=== PATIENT | female | born 1970 | race Caucasian/White ===

== ENCOUNTER → 2018-12-10 | Outpatient (CLI) | payer OTHER ==
[2015-04-01 18:52] VITALS: BP 186/98
[~2018-12-10] MED LIST: GADOBUTROL 10 MMOL/10 ML VIAL IV ONE; LISI10TA2 PO; SERT25TA PO
--- NOTE | 2018-12-10 10:55 | KCIC ---
MRA of the brain without contrast 12/10/2018 Clinical History: Dizziness. Technique: Using 3-D time of flight techniques, a MRA of the major arterial structures surrounding the [place] was performed. Findings: MRA images of the anterior and posterior circulations are within normal limits. No area of stenosis or occlusion is seen. No intracranial aneurysm is seen. Impression: Negative study. Electronically signed by: Abram Renteria MD (12/10/2018 10:51 AM) [id number]
--- NOTE | 2018-12-10 11:07 | KCIC ---
MRA of the Neck without and with Contrast 12/10/2018 Clinical History: Dizziness and hypertension. Technique: Using 2D time of flight techniques, a MRA of the carotid and vertebral arterial structures within the neck was performed. After the dynamic intravenous administration of 10 cc of Gadavist, enhanced, 3D time of flight coronal images of the neck and upper chest were obtained. 3D MIP images were generated in multiple projections for a contrast enhanced MRA. Findings: The origins of the brachiocephalic, left common carotid and left subclavian arteries from the thoracic aortic arch are within normal limits. The origin of the right common carotid and both vertebral arteries are within normal limits. The common carotid arteries, carotid bifurcations, and internal carotid arteries are within normal limits. No hemodynamically significant stenosis or area of occlusion is seen. The left vertebral artery is dominant. Both vertebral arteries demonstrate normal antegrade flow. No area stenosis or occlusion is seen. Impression: Negative study. Stenosis calculation for MRA are based on measurement of the distal internal carotid artery diameter in accordance with the NASCET methodology. Electronically signed by: Abram Renteria MD (12/10/2018 11:02 AM) [id number]
== END | disposition home or self-care (01) ==
LOC: KCIC MRI 07:58
PROVIDERS: ATTEND Nurse Practitioner Family
DX: R42 Dizziness and giddiness (principal); I11.9 Hypertensive heart disease without heart failure; H34.9 Unspecified retinal vascular occlusion
CPT/HCPCS: 70544; 70549